=== PATIENT | female | born 1960 | race African-American/Black ===

== ENCOUNTER 2017-10-26 16:38 | Emergency (ER) | payer MEDICAID ==
[~2017-10-26] VITALS: Ht 157.5 cm; Wt 64.0 kg
[2017-10-26] MEDS ORDERED: ALBU2.5V13 IH (16:45)
[2017-10-26] MEDS ORDERED: SODIUM CHLORIDE 0.9% 1000ML BAG (SEPSIS BOLUS) IV ONE (19:30)
[2017-10-26] MEDS ORDERED: ACETAMINOPHEN 500MG TABLET PO ONE (19:30)
[2017-10-26 20:06] LABS: BASOPHILS % 0.6 % (0.0-2.0); EOSINOPHILS % 0.1 % (0.0-5.0); HEMATOCRIT. 36.9 % (36.0-48.0); HEMOGLOBIN. 11.7 g/dL (12.0-16.0); LYMPHOCYTES % 8.6 % (20.0-50.0); MEAN CORPUSCULAR HEMOGLOBIN 22.1 pg (28.0-32.0); MEAN CORPUSCULAR VOLUME 69.7 fL (81.0-99.0); MEAN PLATELET VOLUME 8.8 fl (7.4-10.4); MONOCYTES % 5.1 % (2.0-8.0); NEUTROPHILS % 85.6 % (40.0-76.0); PLATELET 278 x1000/uL (130-400); RED CELL DISTRIBUTION WIDTH 21.1 % (11.6-14.6)
[2017-10-26 20:16] LABS: CARBON DIOXIDE 28 mEq/L (21-32); CHLORIDE 92 mEq/L (98-107)
[2017-10-26 20:25] LABS: PLATELET ESTIMATE NORMAL
[2017-10-26] MEDS ORDERED: PREDNISONE 20MG TABLET PO STA (20:35)
[2017-10-26] MEDS ORDERED: ALBUTEROL (0.083%) 2.5MG/3ML NEB HHN STA (20:35)
[2017-10-26] MEDS ORDERED: IPRATROPIUM BROMIDE (0.02%) 0.5MG/2.5ML NEB HHN STA (20:35)
[2017-10-26 21:30] VITALS: BP 160/99
== END 2017-10-26 21:55 | disposition home or self-care (01) ==
LOC: ER 16:53
DX: J45.901 Unspecified asthma with (acute) exacerbation (principal); J06.9 Acute upper respiratory infection, unspecified; I10 Essential (primary) hypertension; Z88.0 Allergy status to penicillin
CPT/HCPCS: 36415; 71010; 80053; 83605; 85025; 87040; 93005; 94640; 96360; 99285; J7030; J7512; J7611; Z7610

== ENCOUNTER 2017-10-27 05:48 | Emergency (ER) | payer MEDICAID ==
[~2017-10-27] VITALS: Ht 160 cm; Wt 50.0 kg
[2017-10-27 05:48] VITALS: BP 156/94
[~2017-10-27 05:48] MED LIST: ALBU2.5V13 IH
== END 2017-10-27 10:15 | disposition left against medical advice (07) ==
LOC: ER 05:48
DX: M25.512 Pain in left shoulder (principal); M79.605 Pain in left leg; Z53.21 Procedure and treatment not carried out due to patient leaving prior to being seen by health care provider

== ENCOUNTER 2019-02-25 09:29 | Inpatient (IN) | payer MEDICAID ==
[~2019-02-25] VITALS: Ht 161.3 cm; Wt 56.7 kg
[2019-02-25] MEDS ORDERED: MORPHINE SULFATE 4 MG/ML CPJ (NOT FOR IM USE) IV ONE (11:15)
[2019-02-25 11:46] LABS: BASOPHILS % 0.1 % (0.0-2.0); CHLORIDE 104 mEq/L (98-107); LYMPHOCYTES % 7.6 % (20.0-50.0); MEAN CORPUSCULAR HEMOGLOBIN 30.4 pg (28.0-32.0); MEAN CORPUSCULAR VOLUME 90.8 fL (81.0-99.0); MONOCYTES % 4.1 % (2.0-8.0); NEUTROPHILS % 88.2 % (40.0-76.0); PLATELET 264 x1000/uL (130-400); RED BLOOD CELL COUNT 1.76 mill/uL (4.2-5.4); RED CELL DISTRIBUTION WIDTH 12.7 % (11.6-14.6)
[2019-02-25 12:10] LABS: HEMOGLOBIN. 5.3 g/dL (12.0-16.0)
[2019-02-25] MEDS ORDERED: MORPHINE SULFATE 4 MG/ML CPJ (NOT FOR IM USE) IV PRN (13:15)
[2019-02-25] MEDS ORDERED: GUAIFENESIN 200MG/10ML SUGAR FREE UDC PO PRN (13:15)
[2019-02-25] MEDS ORDERED: DIPHENHYDRAMINE 50MG/ML VIAL IV PRN (13:15)
[2019-02-25] MEDS ORDERED: MAGNESIUM/ALUMINUM HYDROXIDE/SIMETHICONE 30ML UDC PO PRN (13:15)
[2019-02-25] MEDS ORDERED: DOCUSATE SODIUM 100MG CAPSULE PO PRN (13:15)
[2019-02-25] MEDS ORDERED: IPRATROPIUM/ALBUTEROL 0.5-3(2.5)MG/3ML NEB INH PRN (13:15)
[2019-02-25] MEDS ORDERED: CLONIDINE 0.1MG TABLET PO PRN (13:15)
[2019-02-25] MEDS ORDERED: ONDANSETRON HCL 4MG/2ML INJ IV PRN (13:15)
[2019-02-25] MEDS: SODIUM CHLORIDE 0.9% 1,000 ML IV SCH (13:50)
[2019-02-25 14:36] LABS: CREATINE KINASE MB FRACTION 7.6 ng/mL (0.5-3.6)
[2019-02-25 14:53] LABS: HEPATITIS B SURFACE ANTIGEN NEGATIVE
[2019-02-25 15:23] LABS: HEPATITIS A AB IGM NEGATIVE (NEGATIVE)
[2019-02-25 18:50] VITALS: BP 125/62
[2019-02-25 20:00] VITALS: BP 132/74
[2019-02-25 20:35] VITALS: BP 132/74
[2019-02-25] MEDS ORDERED: PNEUMOCOCCAL 23-VAL P-SAC VAC 0.5 ML IM ONE (20:45)
[2019-02-25] MEDS ORDERED: INFLUENZA VIRUS VACCINE(AFLURIA) 0.5ML SYR IM ONE (20:45)
[2019-02-25 22:00] LABS: HEMATOCRIT 19.2 % (36.0-48.0); HEMOGLOBIN 6.5 g/dL (12.0-16.0)
[2019-02-25 22:01] LABS: PROTHROMBIN TIME 10.4 sec (9.6-11.0)
[2019-02-25 22:12] LABS: CREATINE KINASE MB FRACTION 4.2 ng/mL (0.5-3.6)
[2019-02-26] VITALS (12 sets, daily range): BP systolic 90–135; BP diastolic 52–83
[2019-02-26 04:19] LABS: HIV SCREEN 4G Non Reactive (Non Reactive)
[2019-02-26] MEDS: SODIUM CHLORIDE 0.9% 1,000 ML IV SCH (04:55)
[2019-02-26 06:03] LABS: PARTIAL THROMBOPLASTIN TIME 25.6 sec (23.4-31.0)
[2019-02-26 06:07] LABS: BASOPHILS % 0.1 % (0.0-2.0); HEMATOCRIT. 21.7 % (36.0-48.0); HEMOGLOBIN. 7.3 g/dL (12.0-16.0); MEAN CORPUSCULAR HEMOGLOBIN 29.5 pg (28.0-32.0); MEAN CORPUSCULAR VOLUME 87.2 fL (81.0-99.0); MEAN PLATELET VOLUME 8.4 fl (7.4-10.4); MONOCYTES % 9.1 % (2.0-8.0); NEUTROPHILS % 81.8 % (40.0-76.0); PLATELET 253 x1000/uL (130-400); RED BLOOD CELL COUNT 2.49 mill/uL (4.2-5.4); RED CELL DISTRIBUTION WIDTH 14.5 % (11.6-14.6)
[2019-02-26 06:42] LABS: CHLORIDE 111 mEq/L (98-107)
[2019-02-26 06:52] LABS: LDL CHOLESTEROL 39 mg/dL (5-100)
[2019-02-26 06:53] LABS: HDL CHOLESTEROL 43 mg/dL (40-59)
[2019-02-26 07:30] LABS: *AMPHETAMINES SCREEN URINE NEGATIVE (NEGATIVE); *BARBITURATES SCREEN URINE NEGATIVE (NEGATIVE); *BENZODIAZEPINES SCREEN URINE NEGATIVE (NEGATIVE); *COCAINE SCREEN URINE PRESUMTIVE POSITIVE (NEGATIVE); METHADONE URINE SCREEN NEGATIVE (NEGATIVE); OPIATES URINE SCREEN PRESUMTIVE POSITIVE (NEGATIVE)
[2019-02-26 07:31] LABS: CANNABINOID URINE SCREEN PRESUMTIVE POSITIVE (NEGATIVE); PHENCYCLIDINE URINE SCREEN NEGATIVE (NEGATIVE)
[2019-02-26] MEDS ORDERED: INFLUENZA VIRUS VACCINE(AFLURIA) 0.5ML SYR IM ONE (09:00)
[2019-02-26] MEDS ORDERED: PNEUMOCOCCAL 23-VAL P-SAC VAC 0.5 ML IM ONE (09:00)
[2019-02-26] MEDS ORDERED: SIMETHICONE 40 MG/0.6 ML 30ML ONE (09:27)
[2019-02-26] MEDS ORDERED: FENTANYL CITRATE/PF 50MCG/ML 2ML VIAL ONE (09:54)
[2019-02-26] MEDS ORDERED: MIDAZOLAM HCL 2 MG/2 ML VIAL ONE (09:54)
[2019-02-26] MEDS ORDERED: PROPOFOL 200MG/20ML VIAL IV ONE (09:54)
[2019-02-26] MEDS ORDERED: MEPERIDINE HCL/PF 25MG/ML CPJ IV PRN (10:15)
[2019-02-26] MEDS ORDERED: HYDROMORPHONE HCL/PF 2MG/ML CPJ IV PRN (10:15)
[2019-02-26] MEDS ORDERED: ONDANSETRON HCL 4MG/2ML INJ IV PRN (10:15)
[2019-02-26] MEDS ORDERED: LABETALOL HCL 20MG/4ML CARPUJECT IV PRN (10:15)
[2019-02-26] MEDS ORDERED: ONDANSETRON HCL 4MG/2ML INJ ONE (10:21)
[2019-02-26] MEDS: SUCRALFATE 1G TABLET PO SCH ×3 (13:03→20:10)
[2019-02-26] MEDS: DEXT 5%/0.45% NACL 1000ML 1,000 ML IV SCH (13:04)
[2019-02-26 15:50] LABS: BASOPHILS % 0.2 % (0.0-2.0); EOSINOPHILS % 0.2 % (0.0-5.0); HEMATOCRIT. 22.6 % (36.0-48.0); HEMOGLOBIN. 7.5 g/dL (12.0-16.0); MEAN CORPUSCULAR HEMOGLOBIN 29.7 pg (28.0-32.0); MEAN CORPUSCULAR VOLUME 89.9 fL (81.0-99.0); MEAN PLATELET VOLUME 8.3 fl (7.4-10.4); MONOCYTES % 8.3 % (2.0-8.0); NEUTROPHILS % 82.3 % (40.0-76.0); PLATELET 270 x1000/uL (130-400); RED BLOOD CELL COUNT 2.52 mill/uL (4.2-5.4); RED CELL DISTRIBUTION WIDTH 15.4 % (11.6-14.6)
[2019-02-26 16:00] LABS: TOTAL IRON BINDING CAPACITY 224 ug/dL (250-450)
[2019-02-26 16:13] LABS: FOLIC ACID (FOLATE) SERUM 18.5 ng/mL (>5.38)
[2019-02-26] MEDS: PANTOPRAZOLE SODIUM 40 MG/VIAL IV SCH (17:54)
[2019-02-27] VITALS (11 sets, daily range): BP systolic 111–161; BP diastolic 62–90
[2019-02-27] MEDS: DEXT 5%/0.45% NACL 1000ML 1,000 ML IV SCH ×2 (00:15→06:14)
[2019-02-27] MEDS: PANTOPRAZOLE SODIUM 40 MG/VIAL IV SCH ×2 (05:44→17:18)
[2019-02-27] MEDS: SUCRALFATE 1G TABLET PO SCH ×4 (05:47→21:35)
[2019-02-27 06:59] LABS: CHLORIDE 105 mEq/L (98-107)
[2019-02-27 07:07] LABS: HEMATOCRIT. 21.4 % (36.0-48.0); HEMOGLOBIN. 7.1 g/dL (12.0-16.0); MEAN CORPUSCULAR VOLUME 90.3 fL (81.0-99.0); MEAN PLATELET VOLUME 8.1 fl (7.4-10.4); PLATELET 302 x1000/uL (130-400); RED BLOOD CELL COUNT 2.38 mill/uL (4.2-5.4); RED CELL DISTRIBUTION WIDTH 15.3 % (11.6-14.6)
[2019-02-27] MEDS: ACETAMINOPHEN 325MG TABLET PO PRN (16:09)
[2019-02-27 16:27] LABS: HEMATOCRIT 21.9 % (36.0-48.0); HEMOGLOBIN 7.3 g/dL (12.0-16.0)
[2019-02-27 17:43] LABS: PLATELET ESTIMATE NORMAL
[2019-02-27] MEDS: AZITHROMYCIN 500 MG in DEXT 5% WATER 250 ML IV SCH (21:35)
[2019-02-28] VITALS: BP 128/70
[2019-02-28 01:10] LABS: HEMATOCRIT 28.7 % (36.0-48.0); HEMOGLOBIN 9.6 g/dL (12.0-16.0)
[2019-02-28] MEDS: DEXT 5%/0.45% NACL 1000ML 1,000 ML IV SCH (02:36)
[2019-02-28 04:00] VITALS: BP 142/91
[2019-02-28] MEDS: SUCRALFATE 1G TABLET PO SCH ×4 (06:22→20:24)
[2019-02-28] MEDS: PANTOPRAZOLE SODIUM 40 MG/VIAL IV SCH ×2 (06:22→18:05)
[2019-02-28 08:00] VITALS: BP 141/85
[2019-02-28 10:12] LABS: BASOPHILS % 0.3 % (0.0-2.0); EOSINOPHILS % 1.4 % (0.0-5.0); HEMATOCRIT. 27.2 % (36.0-48.0); HEMOGLOBIN. 9.1 g/dL (12.0-16.0); LYMPHOCYTES % 7.4 % (20.0-50.0); MEAN CORPUSCULAR HEMOGLOBIN 29.5 pg (28.0-32.0); MEAN CORPUSCULAR VOLUME 88.6 fL (81.0-99.0); NEUTROPHILS % 83.9 % (40.0-76.0); PLATELET 332 x1000/uL (130-400); RED BLOOD CELL COUNT 3.07 mill/uL (4.2-5.4); RED CELL DISTRIBUTION WIDTH 14.3 % (11.6-14.6)
[2019-02-28 12:00] VITALS: BP 141/73
[2019-02-28 14:26] LABS: CREATINE KINASE 121 IU/L (26-192)
[2019-02-28 15:52] LABS: CLARITY URINE CLOUDY (CLEAR); COLOR URINE YELLOW (YELLOW); KETONES URINE TRACE (NEGATIVE); LEUKOCYTE ESTERASE URINE 3+ (NEGATIVE); NITRITE URINE NEGATIVE (NEGATIVE); OCCULT BLOOD URINE NEGATIVE (NEGATIVE); PROTEIN URINE TRACE (NEGATIVE); SPECIFIC GRAVITY URINE 1.022 (1.005-1.030)
[2019-02-28 16:00] VITALS: BP 145/91
[2019-02-28 20:00] VITALS: BP 135/75
[2019-02-28] MEDS: AZITHROMYCIN 500 MG in DEXT 5% WATER 250 ML IV SCH (20:24)
[2019-03-01] VITALS: BP 130/70
[2019-03-01] MEDS: DEXT 5%/0.45% NACL 1000ML 1,000 ML IV SCH (02:22)
[2019-03-01 04:00] VITALS: BP 120/80
[2019-03-01] MEDS: PANTOPRAZOLE SODIUM 40 MG/VIAL IV SCH (05:45)
[2019-03-01] MEDS: SUCRALFATE 1G TABLET PO SCH ×2 (05:45→12:14)
[2019-03-01 06:09] LABS: BASOPHILS % 0.3 % (0.0-2.0); EOSINOPHILS % 1.7 % (0.0-5.0); HEMATOCRIT. 27.2 % (36.0-48.0); HEMOGLOBIN. 9.1 g/dL (12.0-16.0); LYMPHOCYTES % 8.4 % (20.0-50.0); MEAN CORPUSCULAR HEMOGLOBIN 29.7 pg (28.0-32.0); MEAN CORPUSCULAR VOLUME 89.1 fL (81.0-99.0); MEAN PLATELET VOLUME 8.2 fl (7.4-10.4); MONOCYTES % 9.4 % (2.0-8.0); NEUTROPHILS % 80.2 % (40.0-76.0); PLATELET 409 x1000/uL (130-400); RED BLOOD CELL COUNT 3.06 mill/uL (4.2-5.4); RED CELL DISTRIBUTION WIDTH 14.7 % (11.6-14.6)
[2019-03-01 06:17] LABS: CHLORIDE 105 mEq/L (98-107)
[2019-03-01 08:00] VITALS: BP 144/89
[2019-03-01] MEDS ORDERED: KCL 20MEQ/100ML PREMIX 100 ML IV SCH (09:00)
[2019-03-01] MEDS: ACETAMINOPHEN 325MG TABLET PO PRN (09:08)
[2019-03-01] MEDS ORDERED: GUAIFENESIN-DM 200MG-20MG/10ML UDC PO PRN (10:00)
[2019-03-01 12:02] VITALS: BP 132/70
[2019-03-01] MEDS ORDERED: TUSSL PO (12:38)
[2019-03-01 15:42] VITALS: BP 140/76
[2019-03-01 16:00] VITALS: BP 140/76
== END 2019-03-01 18:27 | disposition home or self-care (01) | DRG 241 ==
LOC: ER 09:29 → 5WST 12:53 → EDBEDREQ 13:02 → EDBEDREQTM 13:02 → ENRESERV 15:38
PROVIDERS: ADMIT Internal Medicine; ATTEND Internal Medicine
PROC: 30233N1 Transfusion of Nonautologous Red Blood Cells into Peripheral Vein, Percutaneous Approach (ICD-10-PCS; 2019-02-25)
PROC: 0DB78ZX Excision of Stomach, Pylorus, Via Natural or Artificial Opening Endoscopic, Diagnostic (ICD-10-PCS; principal; 2019-02-26)
DX: K25.4 Chronic or unspecified gastric ulcer with hemorrhage (principal); J18.9 Pneumonia, unspecified organism; I11.0 Hypertensive heart disease with heart failure; I50.9 Heart failure, unspecified; F14.90 Cocaine use, unspecified, uncomplicated; D72.829 Elevated white blood cell count, unspecified; F31.9 Bipolar disorder, unspecified; F41.9 Anxiety disorder, unspecified; I25.10 Atherosclerotic heart disease of native coronary artery without angina pectoris; M19.90 Unspecified osteoarthritis, unspecified site; K29.71 Gastritis, unspecified, with bleeding; R07.89 Other chest pain; J44.9 Chronic obstructive pulmonary disease, unspecified; I10 Essential (primary) hypertension; D64.9 Anemia, unspecified; I25.2 Old myocardial infarction; Z88.0 Allergy status to penicillin; Z95.1 Presence of aortocoronary bypass graft; Z95.5 Presence of coronary angioplasty implant and graft; Z79.899 Other long term (current) drug therapy
CPT/HCPCS: 36415; 71045; 80048; 80061; 80305; 82550; 82553; 82607; 82728; 82746; 83540; 83550; 83735; 83880; 84100; 84145; 84443; 84484; 85014; 85018; 85044; 85049; 85384; 86705; 86709; 86803; 86850; 86900; 86920; 87340; 87389; 88305; 88312; 88313; 90686; 90732; 93005; 93306; 93970; 96374; 97116; 97162; 97166; 97530; 99291; C9113; J0456; J2250; J2270; J2405; J2704; J3010; J3480; J7040; J7050; J7060; P9016